=== PATIENT | male | born 1960 | race Caucasian/White ===

== ENCOUNTER 2022-01-13 20:59 | Emergency (ER) | payer OTHER ==
[~2022-01-13] VITALS: Ht 188 cm; Wt 86.4 kg
[2022-01-13] MEDS ORDERED: WARF-23 PO (21:22)
[2022-01-13] MEDS ORDERED: HYDR1CAP25 PO (21:22)
[2022-01-13] MEDS ORDERED: ISOS30TAB PO (21:22)
[2022-01-13] MEDS ORDERED: ALBU8.5H INH (21:22)
[2022-01-13] MEDS ORDERED: ATOR40TA75 PO (21:22)
[2022-01-13] MEDS ORDERED: OMEP-173 PO (21:22)
[2022-01-13] MEDS ORDERED: GABA-282 PO (21:22)
[2022-01-13] MEDS ORDERED: WARF-21 PO (21:22)
[2022-01-13] MEDS ORDERED: FURO40TA2 PO (21:22)
[2022-01-13] MEDS ORDERED: NOVOINJ SC (21:23)
[2022-01-13] MEDS ORDERED: ASPI81TA26 PO (21:23)
[2022-01-13] MEDS ORDERED: CARB1TAB97 PO ×2 (21:23)
[2022-01-14 00:54] LABS: BASO % 0.5 % (0.0-1.0); EOS # 0.2 10^3/uL (0.0-0.5); HEMATOCRIT 36.9 % (42.0-52.0); HEMOGLOBIN 12.4 g/dl (13.5-17.5); LYMPH # 0.8 10^3/uL (1.5-5.0); LYMPH % 14.8 % (24.0-44.0); MEAN CORPUSCULAR HEMOGLOBIN 31.6 pg (27.0-33.0); MEAN CORPUSCULAR HGB CONC 33.6 g/dl (32.0-36.5); MEAN CORPUSCULAR VOLUME 93.9 fl (80.0-96.0); MONO # 0.6 10^3/uL (0.0-0.8); MONO % 10.9 % (2.0-8.0); NEUTROPHILS % 69.6 % (36.0-66.0); PLATELET COUNT, AUTOMATED 174 10^3/uL (150-450); RED BLOOD COUNT 3.93 10^6/uL (4.30-6.10); WHITE BLOOD COUNT 5.7 10^3/uL (4.0-10.0)
[2022-01-14 01:07] LABS: ALBUMIN 3.7 GM/DL (3.2-5.2); BILIRUBIN,DIRECT 0.2 MG/DL (0.0-0.2); BILIRUBIN,TOTAL 0.5 MG/DL (0.2-1.0); CALCIUM LEVEL 8.5 MG/DL (8.5-10.1); CREATININE FOR GFR 1.51 MG/DL (0.70-1.30); GLOMERULAR FILTRATION RATE 50.6 (>56); POTASSIUM SERUM 4.9 MEQ/L (3.5-5.1); TOTAL PROTEIN 6.4 GM/DL (6.4-8.2)
[2022-01-14] MEDS ORDERED: ISOS1TAB35 PO (02:51)
[2022-01-14] MEDS ORDERED: CARB1TAB9 PO (02:53)
[2022-01-14] MEDS ORDERED: HYDR-3910 PO (02:53)
[2022-01-14] MEDS ORDERED: HOME MED LIST COMPLETE! XX SCH (02:55)
[2022-01-14 03:00] VITALS: BP 161/72
[2022-01-14] MEDS ORDERED: NIRMATRELVIR/RITONAVIR (RENAL) CO-PACK (EUA) PO SCH ×2 (09:00)
== END 2022-01-14 03:37 | disposition home or self-care (01) ==
LOC: M ED 20:59
DX: U07.1 COVID-19 (principal); R00.1 Bradycardia, unspecified; I45.10 Unspecified right bundle-branch block; I44.4 Left anterior fascicular block; I10 Essential (primary) hypertension; E78.5 Hyperlipidemia, unspecified; K21.9 Gastro-esophageal reflux disease without esophagitis; Z86.79 Personal history of other diseases of the circulatory system; Z88.1 Allergy status to other antibiotic agents; Z79.51 Long term (current) use of inhaled steroids; Z79.01 Long term (current) use of anticoagulants; Z79.899 Other long term (current) drug therapy